=== PATIENT | male | born 1995 | race African-American/Black ===

== ENCOUNTER → 2025-05-10 22:59 | Outpatient (BNV) | payer OTHER, SELFPAY | PROVIDERS: Emergency Provider Emergency Medicine; Visit Provider Radiology Diagnostic Radiology | DX: R07.9 Chest pain, unspecified (principal) | CPT/HCPCS: 71045 ==

== ENCOUNTER 2025-05-10 23:27 | Emergency (ER) | payer MEDICAID, SELFPAY ==
--- NOTE | ~2025-05-10 | XR_ITS ---
CLINICAL HISTORY: Chest Pain 1 view chest x-ray Comparison: None provided Findings: No consolidation or effusion. Heart size is normal. No acute fracture. IMPRESSION: 1. No acute findings. This document has been electronically signed by: Steve Maldonado MD on 05/11/2025 01:07:10
[2025-05-10 23:44] VITALS: BP 143/97; BP 160/108; PULSE 100; PULSE 77; RESP 19; TEMP 37.2; O2SAT 99; BMI 25.0
--- NOTE | 2025-05-10 23:46 | ECG_ITS ---
Test Reason : CP Blood Pressure : */* mmHG Vent. Rate : 75 BPM Atrial Rate : 75 BPM P-R Int : 134 ms QRS Dur : 94 ms QT Int : 388 ms P-R-T Axes : 55 0 -31 degrees QTcB Int : 433 ms Normal sinus rhythm Nonspecific T wave abnormality Abnormal ECG When compared with ECG of 26-Feb-2016 20:08, Nonspecific T wave abnormality now evident in Inferior leads Nonspecific T wave abnormality now evident in Lateral leads Referred By: Generic ED Physician Electronically Signed By: AYESHA NJ
[2025-05-11 00:19] LABS: Basophils Absolute Auto 0.1 X10*3/uL (0.0-0.2); Basophils Percent Auto 0.4 % (0-2); Eosinophils Absolute Auto 0.1 X10*3/uL (0.0-0.4); Eosinophils Percent Auto 0.5 % (0-4); Hematocrit 39.3 % (42.0-52.0); Hemoglobin 13.4 g/dl (14.0-18.0); Imm Gran Abs Auto 0.07 X10*3/uL (0.00-0.03); Imm Gran Pct Auto 0.6 % (0.0-0.4); Lymphocytes Absolute Auto 2.4 X10*3/uL (1.2-4.9); Lymphocytes Percent Auto 19.1 % (20-40); MANUAL DIFF FLAG NO; Mean Corpuscular HGB Conc 34.1 g/dl (31.0-36.0); Mean Corpuscular Hemoglobin 28.5 pg (27.0-33.0); Mean Corpuscular Volume 83.4 fL (80.0-98.0); Mean Platelet Volume 9.3 fL (9.4-12.4); Monocytes Absolute Auto 0.8 X10*3/uL (0.1-1.2); Neutrophils Absolute Auto 9.1 x10*3/uL (2.0-8.3); Neutrophils Percent Auto 73.4 % (45-73); Platelet Count 344 X10*3/uL (160-400); Red Blood Count 4.71 X10*6/uL (4.60-5.80); Red Cell Distribution Width 15.2 % (11.0-16.0); White Blood Count 12.4 X10*3/uL (4.8-10.8)
[2025-05-11 00:44] LABS: Albumin Level 4.6 g/dL (3.5-5.0); Alkaline Phosphatase 91 U/L (39-117); Anion Gap 13 (12-20); Aspartate Amino Transferase 63 U/L (5-37); Bilirubin Total 0.2 mg/dL (0.0-1.0); Blood Urea Nitrogen 12 mg/dL (9-16); Calcium 9.1 mg/dL (8.4-10.2); Carbon Dioxide 22 mmol/L (22-29); Chloride 110 mmol/L (96-108); Creatinine Clr Calc Pharmacy 158.8; Estimated Glomerular Filt Rate > 60; Glucose Random 126 mg/dL (60-115); Potassium 3.3 mmol/L (3.3-5.1); Sodium 142 mmol/L (135-145); Total Protein 7.5 g/dL (6.5-8.0); Troponin-I High Sensitivity < 2.7 ng/L (<3.5-35.0)
[2025-05-11 01:19] LABS: Alanine Aminotransferase 67 U/L (0-40)
--- NOTE | 2025-05-11 02:18 | ED_ITS ---
HPI - Chest Pain General Chief Complaint: Chest Pain Stated Complaint: CP BP 162/107 Time Seen by Provider: 05/10/25 23:36 Source: patient Mode of arrival: ambulatory Limitations: no limitations History of Present Illness ED Provider: Dr. Thais Wu HPI narrative: Patient comes to the emergency room complaining of chest pain. According to the patient, he woke up around 22:30, states that him he went to use the restroom and ?started tripping along with experiencing palpitations. Patient then started to become more anxious, states that he had some chest pressure feeling that someone was pulling his heart through his back. Patient states that he went outside to take some pressure and started feeling better. But every time that he would go back to the house he would have recurrent symptoms. Patient states that he got scared, did not want to go back to sleep and came to the hospital. At this time, patient has no symptoms, denies chest pain or shortness of breath, denies anxiety patient gave him 324 mg of aspirin prior to arriving to the hospital Related Data Allergies Allergy/AdvReac Type Severity Reaction Status Date / Time No Known Allergies Allergy Verified 05/10/25 23:52 Review of Systems 2 Review of Systems: Constitutional : No Weight loss, No Fever, No Chills, No Night Sweats, No Fatigue, No Malaise ENT/Mouth : No Hearing loss, No Ear Pain, No Nasal Congestion, No Sinus Pain, No Hoarseness, No sore throat, No Rhinorrhea, No Swallowing Difficulty Eyes: No Eye Pain, No Swelling, No Redness, No Foreign Body, No Discharge, No Vision Changes Cardiovascular : Earlier today the patient has a sensation of someone pulling his hard through his back, no longer having chest pain. No chest pressure,, No SOB, No Dyspnea on Exertion, No Orthopnea, No Edema, palpitations self-resolved Respiratory : No Cough, No Sputum, No Wheezing, No Smoke Exposure, No Dyspnea Gastrointestinal : No Nausea, No Vomiting, No Diarrhea, No Constipation, No abdominal Pain, No Hematochezia, No Melena Genitourinary : no irregular bleeding, No Dysuria, No Urinary Frequency, No Hematuria, No Urinary Incontinence, No Urgency, No Flank Pain, No Urinary Flow Changes, No Hesitancy Musculoskeletal : No joint pain, No Myalgias, No Joint Swelling Skin : No Skin Lesions, No rash Neuro : No Weakness, No Numbness, No Paresthesias, No Loss of Consciousness, No Dizziness, No Headache Psych : No Anxiety/Panic, No Depression, No SI/HI/AH/VH, No Social Issues, Heme/Lymph: No Bruising, No Bleeding,No Lymphadenopathy Endocrine : No Polyuria, No Polydipsia, No Temperature Intolerance ON LICENSE OF [facility] Social History Social History Alcohol intake: current Alcohol intake frequency: 3 or more drinks per day Alcohol type: wine and hard liquor Smoked in Last 30 Days: Yes Use of substances other than those prescribed or required for medical reasons: Yes Substance Use Type: Marijuana Do you have a plan to hurt others: No Plan Physical Exam 2 Vital Signs: Vital Signs: Last Vital Signs Temp 99.0 F 05/10/25 23:44 Pulse 77 05/10/25 23:44 Resp 19 05/10/25 23:44 BP 143/97 H 05/10/25 23:44 Pulse Ox 99 05/10/25 23:44 O2 Del Method Room Air 05/10/25 23:44 BMI result Body Mass Index 25.0 Const: Other: Appearance: Alert. Oriented X3. No acute distress. Well-appearing, sober, coherent Eyes: Pupils equal, round and reactive to light. ENT: Pharynx normal. Neck: Normal inspection. Neck supple. No lymph nodes noted. No crepitus CVS: Normal heart rate and rhythm. Pulses normal. Normal S1 and S2 Respiratory: No respiratory distress. Breath sounds normal. No Wheezing. No rales Abdomen: Soft and nontender. No rigidity. No distention. Skin: Skin warm and dry. Normal skin color. Normal skin turgor. Extremities: No lower extremity edema. No Lacerations. No Rash Neuro: Oriented X 3. No motor deficit. No sensory deficit. Moving all extremities. No slurred speech. CN 2 through 12 grossly intact Psych: calm, cooperative, normal affect Medical Decision Making Medical Decision Making MDM Narrative: My interpretation of EKG: Normal sinus rhythm, heart rate 75, no ST segment depression or elevation, no T-wave inversion, QTC 433 Labs: No significant abnormality in patient's hematology, white blood cell count 12.4, normal chemistry and troponin Chest x-ray negative Patient likely experienced anxiety. It is possible with the marijuana that he smoked previously was laced. Patient currently asymptomatic Differential Diagnosis Differential Diagnoses: The differential diagnosis associated with the presentation includes (As above) Admission/Observation Consideration of admission/observation: Escalation of care including admission/observation considered (Given patient's symptoms, observation was considered) Lab Data MDM Lab Attestation statement: I reviewed the patient's lab results. 05/11/25 00:15 05/11/25 00:15 Labs: Lab Results 05/11/25 Range/Units 00:15 WBC 12.4 H (4.8-10.8) X10*3/uL RBC 4.71 (4.60-5.80) X10*6/uL Hgb 13.4 L (14.0-18.0) g/dl Hct 39.3 L (42.0-52.0) % MCV 83.4 (80.0-98.0) fL MCH 28.5 (27.0-33.0) pg MCHC 34.1 (31.0-36.0) g/dl RDW 15.2 (11.0-16.0) % Plt Count 344 (160-400) X10*3/uL MPV 9.3 L (9.4-12.4) fL Immature Gran % (Auto) 0.6 H (0.0-0.4) % Neut % (Auto) 73.4 H (45-73) % Lymph % (Auto) 19.1 L (20-40) % Jenkins % (Auto) 6.0 (2-11) % Eos % (Auto) 0.5 (0-4) % Baso % (Auto) 0.4 (0-2) % Lymph # (Auto) 2.4 (1.2-4.9) X10*3/uL Jenkins # (Auto) 0.8 (0.1-1.2) X10*3/uL Eos # (Auto) 0.1 (0.0-0.4) X10*3/uL Baso # (Auto) 0.1 (0.0-0.2) X10*3/uL Abs Immat Gran (auto) 0.07 H (0.00-0.03) X10*3/uL Absolute Neuts (auto) 9.1 H (2.0-8.3) x10*3/uL Absolute Nucleated RBC 0.000 (0.0-0.012) X10*3/uL Nucleated RBC % (auto) 0.0 (0.0-0.2) /100WBC Sodium 142 (135-145) mmol/L Potassium 3.3 (3.3-5.1) mmol/L Chloride 110 H (96-108) mmol/L Carbon Dioxide 22 (22-29) mmol/L Anion Gap 13 (12-20) BUN 12 (9-16) mg/dL Creatinine 0.76 (0.5-1.4) mg/dL Estim Creat Clear Calc 158.8 Estimated GFR > 60 Random Glucose 126 H (60-115) mg/dL Calcium 9.1 (8.4-10.2) mg/dL Total Bilirubin 0.2 (0.0-1.0) mg/dL AST 63 H (5-37) U/L ALT 67 H (0-40) U/L Alkaline Phosphatase 91 (39-117) U/L Troponin I High Sens < 2.7 (<3.5-35.0) ng/L Total Protein 7.5 (6.5-8.0) g/dL Albumin 4.6 (3.5-5.0) g/dL Independent Interpretation I performed an independent interpretation of an: EKG and Plain X-Ray Radiology Impression Discussion of test interpretation with radiology: I have reviewed the radiologist's reading. Radiologist Impression: No consolidation or effusion. Heart size is normal. No acute fracture. Critical Care Time Critical Care Time Critical Care Time: Yes Total Critical Care Time: 35 Attestation: I have personally provided critical care time. Time includes review of lab data, radiology results, discussion with consultants, and monitoring for potential decompensation. Intervention performed as documented. Discharge Plan Discharge Clinical Impression: Atypical chest pain, Anxiety Patient Disposition: Home, Self-Care Instructions: Chest Pain (ED) Print Language: Citizen Of [place]
[2025-05-11 02:23] VITALS: BP 138/100; PULSE 91; RESP 14; TEMP 36.7; O2SAT 96
[2025-05-11 02:43] VITALS: BP 138/100; PULSE 91; RESP 14; TEMP 36.7; O2SAT 96
--- NOTE | 2025-05-24 12:37 | MHC.CARE ---
Patient was seen by the CARE TEAM and referred to CC, referral generated and emailed to [facility].
== END 2025-05-11 02:44 | disposition home or self-care (01) ==
PROVIDERS: Emergency Provider Emergency Medicine
DX: R07.89 Other chest pain (principal); F41.9 Anxiety disorder, unspecified; R94.31 Abnormal electrocardiogram [ECG] [EKG]; R00.2 Palpitations; Z79.899 Other long term (current) drug therapy
CPT/HCPCS: 36415; 71045; 80053; 84484; 85025; 93005; 99283; 99285

== ENCOUNTER → 2025-05-10 23:46 | Outpatient (BNV) | payer MEDICAID, SELFPAY | PROVIDERS: Emergency Provider Emergency Medicine; Visit Provider Internal Medicine | DX: R94.31 Abnormal electrocardiogram [ECG] [EKG] (principal); R07.9 Chest pain, unspecified | CPT/HCPCS: 93010 ==

== ENCOUNTER 2025-05-16 17:18 | Emergency (ER) | payer MEDICAID, SELFPAY ==
[2025-05-16 17:29] VITALS: BP 140/100; BP 141/91; PULSE 109; PULSE 96; RESP 18; TEMP 36.8; O2SAT 99; BMI 25.0
--- NOTE | 2025-05-16 17:52 | ED_ITS ---
HPI - General Adult General Chief complaint: Psychiatric Symptoms Stated complaint: SI, LIFE STRESSORS Time Seen by Provider: 05/16/25 17:19 Source: patient and EMS Mode of arrival: EMS Limitations: no limitations History of Present Illness ED Provider: JESSY ANDINO PA-C HPI narrative: 30 year old male presents to the ED today via EMS for evaluation of increasing depression and suicidal ideations surrounding his recent divorce/ custody issues. Reports calling suicidal help line today. Admits to consuming multiple nips of vodka today. On arrival, patient very agitated. Argumentative with staff and security. Fixating on statements said to him by hvac technician. Refusing to get changed over. Patient was brought in for suicidal ideation. Currently intoxicated and being verbally aggressive. At this time I feel he is a threat to himself and others. Placed on section 12 Related Data Allergies Allergy/AdvReac Type Severity Reaction Status Date / Time No Known Allergies Allergy Verified 05/16/25 17:31 Review of Systems 2 Review of Systems: Yes all other systems are reviewed and are negative [facility] Past Medical History Attestation statement: The following information was validated with the patient. Source: old records reviewed and nursing notes reviewed Social History Social History Alcohol intake: current Alcohol intake frequency: 3 or more drinks per day Alcohol type: hard liquor Smoked in Last 30 Days: Yes Use of substances other than those prescribed or required for medical reasons: Yes Substance Use Type: Marijuana Substance Use Frequency: Occasionally Any prior treatment program specific to substance use: No Advance Directives: No Advance Directives Information Provided: No Do you have a plan to hurt others: No Plan Physical Exam ED Vital Signs: Vital Signs - 24 hr 05/16/25 17:29 05/17/25 02:56 05/17/25 03:31 Temperature 98.2 F 98.3 F 98.8 F Pulse Rate 96 97 79 Respiratory Rate 18 18 13 Blood Pressure 141/91 H 155/98 H 164/98 H Pulse Oximetry 99 100 100 Oxygen Delivery Method Room Air Room Air Room Air 05/17/25 06:11 05/17/25 10:53 Temperature 98.3 F 98.3 F Pulse Rate 91 91 Respiratory Rate 13 13 Blood Pressure 159/101 H 159/101 H Pulse Oximetry 100 100 Oxygen Delivery Method Room Air Room Air BMI result Body Mass Index 25.0 Hypertensive, vitals otherwise WNL General: in NAD Skin: Warm, dry, intact. No rashes or lesions. Head: Normocephalic, atraumatic. EENT: Hearing is intact b/l. Conjunctiva clear. PERRLA. EOM intact. Moist mucous membranes.? Neck: Supple without LAD Cardiac: Chest wall symmetric. RRR Lungs: Normal respiratory effort without accessory muscle use. CTA bilaterally Abdomen: Soft, non-tender, non-distended. No rebound tenderness or guarding Back: No midline spinous or paraspinal tenderness. No step off deformity. Ext: Upper and lower extremities atraumatic, without tenderness, deformity, swelling or erythema Neuro: AOx3. Normal speech. CN 2-12 grossly intact. Ambulating with steady gait. Psych: Argumentative, fixating on certain ideas Course Course Course Narrative: 1814 -- Patient informed he was placed on section 12. On further discussion with RN and I, patient calm and agreeable with oil change technician/ labs. > work up pending Medications Administered Discontinued Medications Generic Name Dose Route Start Last Admin Trade Name Joseq PRN Reason Stop Dose Admin Lorazepam 2 mg 05/17/25 02:57 05/17/25 03:00 Lorazepam 1 Mg Tablet PO 05/17/25 02:58 2 mg ONCE ONE Administration Ondansetron HCl 8 mg 05/17/25 02:57 05/17/25 03:00 Ondansetron Odt 8 Mg Tab.Rapdis TRANSLINGU 05/17/25 02:58 8 mg ONCE ONE Administration Medical Decision Making Medical Decision Making [facility] Narrative: 30 year old male presents to the ED today via EMS for evaluation of increasing depression and suicidal ideations surrounding his recent divorce. Differential diagnosis includes anemia, electrolyte abnormality, mood disorder, anxiety, depression, SI, polysubstance abuse Presentation not consistent with acute organic causes to include delirium, dementia or drug induced disorders (acute ingestions or withdrawal; no evidence of toxidrome).? Given the H&P, I suspect this patient is suicidal and will require observation. placed on section 12 - signed by my attending dr. aldana Will consult care team to evaluate the patient. Will also obtain labs for medical clearance. Plan: labs, EKG, ASA/APAP levels, ETOH level, UDS, care team consultation, reassessment At 03:45, I was informed by the patient's nurse that the patient was complaining of chest pain. EKG: Normal sinus rhythm, heart rate 67, no ST segment depression or elevation, no T-wave inversion, QTC 420 troponin 1 is negative At 10:00 patient is not suicidal not homicidal well-appearing wants to go home. In no distress. Care team involved. Evaluated the patient felt patient is safe to go home. No suicidal homicidal intent. Patient only stated terms when he was drinking. He is currently in stable condition. Will discharge home. Differential Diagnosis Differential Diagnoses: The differential diagnosis associated with the presentation includes as above. Admission/Observation not indicated Lab Data MDM Lab Attestation statement: I reviewed the patient's lab results. as above. 05/16/25 18:08 05/16/25 18:08 Labs: Lab Results 05/16/25 05/16/25 05/17/25 Range/Units 18:08 18:09 03:46 WBC 10.0 (4.8-10.8) X10*3/uL RBC 5.55 (4.60-5.80) X10*6/uL Hgb 15.8 (14.0-18.0) g/dl Hct 46.0 (42.0-52.0) % MCV 82.9 (80.0-98.0) fL MCH 28.5 (27.0-33.0) pg MCHC 34.3 (31.0-36.0) g/dl RDW 15.5 (11.0-16.0) % Plt Count 491 H D (160-400) X10*3/uL MPV 9.1 L (9.4-12.4) fL Immature Gran % (Auto) 0.3 (0.0-0.4) % Neut % (Auto) 57.5 (45-73) % Lymph % (Auto) 35.2 (20-40) % Vance % (Auto) 6.1 (2-11) % Eos % (Auto) 0.3 (0-4) % Baso % (Auto) 0.6 (0-2) % Lymph # (Auto) 3.5 (1.2-4.9) X10*3/uL Vance # (Auto) 0.6 (0.1-1.2) X10*3/uL Eos # (Auto) 0.0 (0.0-0.4) X10*3/uL Baso # (Auto) 0.1 (0.0-0.2) X10*3/uL Abs Immat Gran (auto) 0.03 (0.00-0.03) X10*3/uL Absolute Neuts (auto) 5.8 (2.0-8.3) x10*3/uL Absolute Nucleated RBC 0.000 (0.0-0.012) X10*3/uL Nucleated RBC % (auto) 0.0 (0.0-0.2) /100WBC Sodium 147 H (135-145) mmol/L Potassium 3.8 (3.3-5.1) mmol/L Chloride 108 (96-108) mmol/L Carbon Dioxide 25 (22-29) mmol/L Anion Gap 18 (12-20) BUN 8 L (9-16) mg/dL Creatinine 0.86 (0.5-1.4) mg/dL Estim Creat Clear Calc 140.3 Estimated GFR > 60 Random Glucose 127 H (60-115) mg/dL Calcium 8.9 (8.4-10.2) mg/dL Magnesium 2.6 (1.6-2.6) mg/dL Total Bilirubin 0.3 (0.0-1.0) mg/dL AST 58 H (5-37) U/L ALT 94 H (0-40) U/L Alkaline Phosphatase 124 H (39-117) U/L Troponin I High Sens < 2.7 (<3.5-35.0) ng/L Total Protein 8.7 H (6.5-8.0) g/dL Albumin 5.2 H (3.5-5.0) g/dL Urine Color Dark Yellow Urine Appearance Clear Urine pH 8.0 (5.0-9.0) Ur Specific [place] >= 1.030 H (1.005-1.025) Urine Protein 300 (3+) H (Neg-Trace) mg/dL Urine Glucose (UA) Negative (Negative) mg/dL Urine Ketones Trace (Negative) mg/dL Urine Blood Negative (Negative) Urine Nitrite Negative (Negative) Ur Leukocyte Esterase Negative (Negative) Urine RBC 0-2 (0-2) /HPF Urine WBC 0-5 (0-5) /HPF Ur Squamous Epith Cells 0-2 (0-2) /HPF Calcium Oxalate Crystal Present Urine Bacteria 1+ (None Seen) Hyaline Casts 0-2 (0-2) /LPF Salicylates < 5.0 L (15-30) mg/dL Urine Opiates Screen Not Detected (Not Detect) Ur Buprenorphine Scrn Not Detected (Not Detect) ng/mL Ur Oxycodone Screen Not Detected (Not Detect) ng/mL Urine Methadone Screen Not Detected (Not Detect) ng/mL Urine Fentanyl Screen Not Detected (Not Detect) Acetaminophen < 3 (<30) mcg/mL Ur Barbiturates Screen Not Detected (Not Detect) Ur Phencyclidine Scrn Not Detected (Not Detect) Ur Amphetamines Screen Not Detected (Not Detect) U Benzodiazepines Scrn Not Detected (Not Detect) Urine Cocaine Screen Not Detected (Not Detect) U Marijuana (THC) Screen POSITIVE H (Not Detect) Ethyl Alcohol 300 H* mg/dL 05/17/25 Range/Units 05:37 WBC (4.8-10.8) X10*3/uL RBC (4.60-5.80) X10*6/uL Hgb (14.0-18.0) g/dl Hct (42.0-52.0) % MCV (80.0-98.0) fL MCH (27.0-33.0) pg MCHC (31.0-36.0) g/dl RDW (11.0-16.0) % Plt Count (160-400) X10*3/uL MPV (9.4-12.4) fL Immature Gran % (Auto) (0.0-0.4) % Neut % (Auto) (45-73) % Lymph % (Auto) (20-40) % Vance % (Auto) (2-11) % Eos % (Auto) (0-4) % Baso % (Auto) (0-2) % Lymph # (Auto) (1.2-4.9) X10*3/uL Vance # (Auto) (0.1-1.2) X10*3/uL Eos # (Auto) (0.0-0.4) X10*3/uL Baso # (Auto) (0.0-0.2) X10*3/uL Abs Immat Gran (auto) (0.00-0.03) X10*3/uL Absolute Neuts (auto) (2.0-8.3) x10*3/uL Absolute Nucleated RBC (0.0-0.012) X10*3/uL Nucleated RBC % (auto) (0.0-0.2) /100WBC Sodium (135-145) mmol/L Potassium (3.3-5.1) mmol/L Chloride (96-108) mmol/L Carbon Dioxide (22-29) mmol/L Anion Gap (12-20) BUN (9-16) mg/dL Creatinine (0.5-1.4) mg/dL Estim Creat Clear Calc Estimated GFR Random Glucose (60-115) mg/dL Calcium (8.4-10.2) mg/dL Magnesium (1.6-2.6) mg/dL Total Bilirubin (0.0-1.0) mg/dL AST (5-37) U/L ALT (0-40) U/L Alkaline Phosphatase (39-117) U/L Troponin I High Sens < 2.7 (<3.5-35.0) ng/L Total Protein (6.5-8.0) g/dL Albumin (3.5-5.0) g/dL Urine Color Urine Appearance Urine pH (5.0-9.0) Ur Specific [place] (1.005-1.025) Urine Protein (Neg-Trace) mg/dL Urine Glucose (UA) (Negative) mg/dL Urine Ketones (Negative) mg/dL Urine Blood (Negative) Urine Nitrite (Negative) Ur Leukocyte Esterase (Negative) Urine RBC (0-2) /HPF Urine WBC (0-5) /HPF Ur Squamous Epith Cells (0-2) /HPF Calcium Oxalate Crystal Urine Bacteria (None Seen) Hyaline Casts (0-2) /LPF Salicylates (15-30) mg/dL Urine Opiates Screen (Not Detect) Ur Buprenorphine Scrn (Not Detect) ng/mL Ur Oxycodone Screen (Not Detect) ng/mL Urine Methadone Screen (Not Detect) ng/mL Urine Fentanyl Screen (Not Detect) Acetaminophen (<30) mcg/mL Ur Barbiturates Screen (Not Detect) Ur Phencyclidine Scrn (Not Detect) Ur Amphetamines Screen (Not Detect) U Benzodiazepines Scrn (Not Detect) Urine Cocaine Screen (Not Detect) U Marijuana (THC) Screen (Not Detect) Ethyl Alcohol mg/dL Independent Historian Clinical information obtained from an independent historian. History obtained from or confirmed by: EMS Social Determinants Patient?s care significantly limited by Social Determinants of Health including: Other Social Determinant of Health Critical Care Time Critical Care Time Critical Care Time: No Discharge Plan Discharge Clinical Impression: Suicidal ideation, Depression Patient Disposition: Home, Self-Care Instructions: Alcohol Intoxication (DC) Referrals: Physician,Unknown J [Primary Care Provider, Medical] - 1 week Referral Note: Please go to detox Stand Alone Forms: Work/School Release Interventions: Navarro-Suicide Risk Severity Scale Last Done: 05/17/25 06:14 ED Discharge Assessment Last Done: 05/17/25 10:53 Discharge Date/Time: 05/17/25 10:54 Print Language: French
[2025-05-16 18:16] LABS: MANUAL DIFF FLAG NO
[2025-05-16 18:23] LABS: Hematocrit 46.0 % (42.0-52.0); Hemoglobin 15.8 g/dl (14.0-18.0); Imm Gran Abs Auto 0.03 X10*3/uL (0.00-0.03); Imm Gran Pct Auto 0.3 % (0.0-0.4); Lymphocytes Absolute Auto 3.5 X10*3/uL (1.2-4.9); Mean Corpuscular HGB Conc 34.3 g/dl (31.0-36.0); Mean Corpuscular Hemoglobin 28.5 pg (27.0-33.0); Mean Corpuscular Volume 82.9 fL (80.0-98.0); NRBC Abs Auto 0.000 X10*3/uL (0.0-0.012); NRBC Pct Auto 0.0 /100WBC (0.0-0.2); Platelet Count 491 X10*3/uL (160-400); Red Blood Count 5.55 X10*6/uL (4.60-5.80); White Blood Count 10.0 X10*3/uL (4.8-10.8)
[2025-05-16 18:28] LABS: Cannabinoid Screen Urine POSITIVE (Not Detect)
[2025-05-16 18:45] LABS: Acetaminophen LAB < 3 mcg/mL (<30); Alanine Aminotransferase 94 U/L (0-40); Albumin Level 5.2 g/dL (3.5-5.0); Alkaline Phosphatase 124 U/L (39-117); Anion Gap 18 (12-20); Aspartate Amino Transferase 58 U/L (5-37); Blood Urea Nitrogen 8 mg/dL (9-16); Calcium 8.9 mg/dL (8.4-10.2); Carbon Dioxide 25 mmol/L (22-29); Chloride 108 mmol/L (96-108); Creatinine Clr Calc Pharmacy 140.3; Estimated Glomerular Filt Rate > 60; Magnesium 2.6 mg/dL (1.6-2.6); Potassium 3.8 mmol/L (3.3-5.1); Salicylate < 5.0 mg/dL (15-30); Sodium 147 mmol/L (135-145); Total Protein 8.7 g/dL (6.5-8.0)
--- NOTE | 2025-05-16 19:17 | PC.NURSE ---
Assumed care of patient at 19:00, patient resting in bed, eyes closed, RR 16, respirations noted to be even and unlabored.
--- OUTSIDE RECORDS SUMMARY | 2025-05-16 20:20 | XMS_ITS | Clinical Summary ---
Author Organization [facility] Address [address] [place] [address] Phone Care Team Providers Care Bundle Cutter Name Role Phone Henrietta Scherer BACILIO Primary Care Provider [phone] Immunizations Immunization Administration Dates Next Due DTaP 5 06/16/2001, 8,1997, 997,1997 HPV, Quadrivalent 09/26/2013,05/23/2013,03/22/20 13 Hep A, ped/adol 04/09/2015,04/05/2014 Hep B, ped/adol 1997,1997,1997 Hib (PRP-T) 10/01/1998, 7,1997, 997 IPV 06/16/2001 MMR 06/16/2001,06/06/1998 Meningococcal Conj (Menactra) MCV4P 04/09/2015,0 01/30/2009 OPV 1997,1997,1997 Tdap 01/30/2009 Varicella 01/30/2009,06/06/1998 Family History Relation Name Status Comments Father Alive Father: Alive a nd well Half-Sister Alive Half sister (M) : Alive and well Mother Alive Mother: Alive a nd well Other Family history of Diabetes mellitus, Family history of Asthma, Family history of Elevated cholesterol Sister 1 Alive Sister: eczema, eczema Sister 2 Alive Sister: eczema, eczema Social History Tobacco Use Types Packs/Day Years Used Date Smoking Tobacco: Unknown Comments:Unknown if ever smo ked Sex and Gender Information Value Date Recorded Sex Assigned at Not on file Legal Sex Male 5:17 PM EDT Gender Identity Not on file Sexual Orientation Not on file Last Filed Vital Signs Vital Sign Reading Time Taken Comments Blood Pressure 117/84 11/26/2016 12:00 AM EST Pulse 70 11/26/2016 12:00 AM EST Temperature 36.2 C (97.2 F) 06/05/2012 12:00 AM EDT Respiratory Rate - - Oxygen Saturation 100% 06/05/2012 12:00 AM EDT Inhaled Oxygen Concentration - - Weight 56 kg (123 lb 6.4 oz) 11/26/2016 12:00 AM EST Height 180.3 cm (5' 11 ) 11/26/2016 12:00 AM EST Body Mass Index 17.21 11/26/2016 12:00 AM EST Plan of Treatment Health Maintenance Due Date Last Done Comments DTaP,Tdap,and Td Vaccines (7 - Td or Tdap) 01/30/2019 01/30/2009, 06/16/2001, 10/01/1998, Additional history exists COVID-19 Vaccine ( season) 2024 Influenza Vaccines (#1) 2025 Hepatitis B Vaccines Completed 1997, 1997, 1997 HIB Vaccines Completed 10/01/1998, 10/14, 1997, Additional history exists IPV Vaccines Completed 06/16/2001, 10/14, 1997, Additional history exists MMR Vaccines Completed 06/16/2001, 06/06/1998 Varicella Vaccines Completed 01/30/2009, 06/06/1998 HPV Vaccines Completed 09/26/2013, 05/14, 03/22/2013 Hepatitis A Vaccines Completed 04/09/2015, 04/05/20 14 Meningococcal Vaccine Completed 04/09/2015, 009 Men B Vaccine Aged Out No longer elig ible based on patient's age to complete this topic Pneumococcal Vaccine Aged Out No long er eligible based on patient's age to complete this topic Care Teams Bundle Cutter Relationship Specialty Start Date End Date Henrietta Scherer NP PCP - General 06/24/17
--- NOTE | 2025-05-16 23:34 | PC.NURSE ---
Took over care from ROCIO Reyes, pt sleeping at this time, no sign of distress,
[2025-05-17 01:37] LABS: Appearance Urine Clear; PH 8.0 (5.0-9.0)
[2025-05-17 01:38] LABS: Glucose Urine UA Negative (Negative); Specific Gravity - Urine >= 1.030 (1.005-1.025); UMIC TRIGGER UACC YES
--- NOTE | 2025-05-17 02:05 | PC.NURSE ---
pt sleeping at this time, no sign of distress.
[2025-05-17 02:56] VITALS: BP 155/98; PULSE 97; RESP 18; TEMP 36.8; O2SAT 100
--- NOTE | 2025-05-17 03:01 | PC.NURSE ---
Medicated per mar, for CIWA and nausea
--- NOTE | 2025-05-17 03:24 | PC.NURSE ---
pt feeling dizziness, bp elevated, notified charge nurse, pt being transferred room 22 for monitoring.
[2025-05-17 03:31] VITALS: BP 164/98; PULSE 79; RESP 13; TEMP 37.1; O2SAT 100
--- NOTE | 2025-05-17 03:34 | ECG_ITS ---
Test Reason : CHEST PAIN Blood Pressure : */* mmHG Vent. Rate : 67 BPM Atrial Rate : 67 BPM P-R Int : 144 ms QRS Dur : 92 ms QT Int : 398 ms P-R-T Axes : 59 4 2 degrees QTcB Int : 420 ms Normal sinus rhythm with sinus arrhythmia Nonspecific T wave abnormality Abnormal ECG When compared with ECG of 10-May-2025 23:49, No significant change was found Referred By: Cookie Dao Electronically Signed By: SAMANTHA JARAMILLO MD
[2025-05-17 04:15] LABS: Troponin-I High Sensitivity < 2.7 ng/L (<3.5-35.0)
[2025-05-17 06:05] LABS: Troponin-I High Sensitivity < 2.7 ng/L (<3.5-35.0)
[2025-05-17 06:11] VITALS: BP 159/101; PULSE 91; RESP 13; TEMP 36.8; O2SAT 100
--- NOTE | 2025-05-17 06:17 | PC.NURSE ---
Pt was experiencing, sweating, dizziness and chest pain, was taken to main for observation, pt brought back after second trop, awaiting to be seen.
--- NOTE | 2025-05-17 07:25 | PC.NURSE ---
Pt resting quietly in bed, BH2. States he's hoping to get to a Detox this am. States he feels Much better since receiving ativan around 3am. Denies ever having DT's or Sz from withdrawal in the past. Awaits CARE team eval this am.
--- NOTE | 2025-05-17 10:10 | MHC.CARE ---
Pt has been referred to [facility] for a 3-day follow up for services and a 7 day alert.
[2025-05-17 10:53] VITALS: BP 159/101; PULSE 91; RESP 13; TEMP 36.8; O2SAT 100
== END 2025-05-17 10:54 | disposition home or self-care (01) ==
PROVIDERS: Physician Assistant; Physician Assistant Medical; Emergency Provider Emergency Medicine
DX: F32.A Depression, unspecified (principal); R45.851 Suicidal ideations; R45.1 Restlessness and agitation; F10.90 Alcohol use, unspecified, uncomplicated; Y90.8 Blood alcohol level of 240 mg/100 ml or more; Z72.89 Other problems related to lifestyle; Z63.5 Disruption of family by separation and divorce; Z65.3 Problems related to other legal circumstances
CPT/HCPCS: 36415; 80053; 80143; 80179; 80307; 81001; 83735; 84484; 85025; 93005; 99285; S9485

== ENCOUNTER → 2025-05-17 03:34 | Outpatient (BNV) | payer MEDICAID, SELFPAY | PROVIDERS: Emergency Provider Emergency Medicine; Visit Provider Internal Medicine Cardiovascular Disease | DX: R94.31 Abnormal electrocardiogram [ECG] [EKG] (principal); R07.9 Chest pain, unspecified | CPT/HCPCS: 93010 ==

== ENCOUNTER 2025-11-05 18:41 | Emergency (ER) | payer MEDICAID, SELFPAY ==
--- NOTE | ~2025-11-05 | XR_ITS ---
CLINICAL HISTORY: pain Chest Radiograph Comparison: 05/10/25 Findings: No cardiomegaly. Normal mediastinal contours. No pneumothorax. No opacity. No pleural effusion. No acute findings in the upper abdomen. No acute fracture. Impression: No acute findings. This document has been electronically signed by: Jamila Carrasco MD on 11/05/2025 20:39:26
--- NOTE | 2025-11-05 18:45 | ECG_ITS ---
Test Reason : CHEST PAIN Blood Pressure : */* mmHG Vent. Rate : 84 BPM Atrial Rate : 84 BPM P-R Int : 158 ms QRS Dur : 94 ms QT Int : 398 ms P-R-T Axes : 50 0 6 degrees QTcB Int : 470 ms Normal sinus rhythm Normal ECG When compared with ECG of 17-May-2025 03:34, No significant change was found Referred By: Generic ED Physician Electronically Signed By: SAMANTHA JARAMILLO MD
[2025-11-05 18:49] VITALS: BP 150/115; BP 157/111; PULSE 118; PULSE 92; RESP 16; TEMP 36.8; O2SAT 100; O2SAT 99; BMI 26.6
[2025-11-05 19:24] LABS: MANUAL DIFF FLAG NO
[2025-11-05 19:25] LABS: Hematocrit 41.4 % (42.0-52.0); Hemoglobin 14.3 g/dl (14.0-18.0); Imm Gran Abs Auto 0.04 X10*3/uL (0.00-0.03); Imm Gran Pct Auto 0.4 % (0.0-0.4); Lymphocytes Absolute Auto 2.0 X10*3/uL (1.2-4.9); Mean Corpuscular HGB Conc 34.5 g/dl (31.0-36.0); Mean Corpuscular Hemoglobin 30.0 pg (27.0-33.0); Mean Corpuscular Volume 86.8 fL (80.0-98.0); NRBC Abs Auto 0.000 X10*3/uL (0.0-0.012); NRBC Pct Auto 0.0 /100WBC (0.0-0.2); Platelet Count 412 X10*3/uL (160-400); Red Blood Count 4.77 X10*6/uL (4.60-5.80); White Blood Count 9.2 X10*3/uL (4.8-10.8)
--- OUTSIDE RECORDS SUMMARY | 2025-11-05 19:32 | XMS_ITS | Clinical Summary ---
Author Organization [facility] Address [address] [place] [id number] Phone Care Team Providers Care Web Retailer Name Role Phone Pcp, Unknown Primary Care Provider Unavailabl e Social History Tobacco Use Types Packs/Day Years Used Date Smoking Tobacco: Never Assessed Education Answer Date Recorded Are you interested in more education? Not on nikolai e 03/11/2023 Are you concerned about learning? Not on file 03/11/2023 No 03/11/2023 No 03/11/2023 Digital Access Answer Date Recorded No 04/12/2023 No 04/12/2023 Reliable internet access at home? Not on file 04/12/2023 Device with a working camera? Not on file Sex and Gender Information Value Date Recorded Sex Assigned at Not on file Legal Sex Male 1:24 PM EDT Gender Identity Not on file Sexual Orientation Not on file Plan of Treatment Health Maintenance Due Date Last Done Comments Adult Td,Tdap Booster 1997 DEPRESSION SCREENING 2009 SMOKING Hx and SMOKELESS TOB ACCO SCREENING 2010 HEPATITIS C SCREENING 2015 HIV ONE-TIME SCREENING (18-6 5 YEARS) 2015 INFLUENZA VACCINE (#1) 2025 COVID-19 VACCINE (2024-2 6 season) 2025 HEPATITIS A VACCINES Aged Out No long er eligible based on patient's age to complete this topic HIB VACCINES Aged Out No longer eligi ble based on patient's age to complete this topic MENINGOCOCCAL VACCINES (ACWY) Aged Out No longer eligible based on patient's age to complete this topic MENINGOCOCCAL VACCINES (B) Aged Out N o longer eligible based on patient's age to complete this topic PNEUMOCOCCAL VACCINES (0-49 years) Aged Out No longer eligible based on patient's age to complete this topic Medical Devices Not on file Care Teams Web Retailer Relationship Specialty Start Date End Date Pcp, Unknown PCP - General 06/11/20 Additional Source Comments The information contained in this document represents components of the legal health record. It is not the complete legal health record.[facility]
--- OUTSIDE RECORDS SUMMARY | 2025-11-05 19:32 | XMS_ITS | Clinical Summary ---
Author Organization [facility] Address [address] [place] [address] Phone Care Team Providers Care Shank Scourer Name Role Phone Henrietta Scherer BACILIO Primary Care Provider [phone] Immunizations Immunization Administration Dates Next Due DTaP [...] 01/30/2019 01/30/2009, 06/16/2001, 10/01/1998, Additional history exists Influenza Vaccines (#1) 2025 COVID-19 Vaccine ( season) 2025 Hepatitis B Vaccines Completed 1997, 1997, [...] age to complete this topic Care Teams Shank Scourer Relationship Specialty Start Date End Date Henrietta Scherer NP PCP - General 06/24/17
--- OUTSIDE RECORDS SUMMARY | 2025-11-05 19:32 | XMS_ITS | Encounter Summary ---
Author Organization [facility] Address [address] [place] [address] Phone Care Team Providers Care Technical Director Name Role Phone Henrietta Scherer NP Primary Care Provider [phone] Encounter Details Date Type Department Care Team (Late st Contact Info) Description 06/30/2017 Conversion Encounter [place] [facility] - [address] [address] Social History Tobacco Use Types Packs/Day Years Used Date Smoking Tobacco: Unknown Comments:Unknown if ever smo ked Sex and Gender Information Value Date Recorded Sex Assigned at Not on file Legal Sex Male 5:17 PM EDT Gender Identity Not on file Sexual Orientation Not on file documented as of this encounter Plan of Treatment Not on file documented as of this encounter Visit Diagnoses Not on filedocumented in this encounter Care Teams Technical Director Relationship Specialty Start Date End Date Henrietta Scherer NP PCP - General 06/24/17 documented as of this encounter
--- OUTSIDE RECORDS SUMMARY | 2025-11-05 19:32 | XMS_ITS | Encounter Summary ---
Author Organization [facility] Address [address] [place] [address] Phone Care Team Providers Care Head Mva Reactor Operator Name Role Phone Pcp, Unknown Primary Care Provider Unavailabl e Encounter Details Date Type Department Care Team (Late st Contact Info) Description 06/11/2020 Transcribe Orders [facility] [address] [place] [address] Alex Dave MD [address] [place] [address] [email or web address] Pre-employment examination (Primary Dx) Social History Tobacco Use Types Packs/Day Years Used Date Smoking Tobacco: Never Assessed Sex and Gender Information Value Date Recorded Sex Assigned at Not on file Legal Sex Male 1:24 PM EDT Gender Identity Not on file Sexual Orientation Not on file documented as of this encounter Plan of Treatment Not on file documented as of this encounter Results * Varicella-zoster (VZV) antibody, IgG (06/11/2020 1:33 PM EDT) Varicella Ab(s) Positive Positive [facility] Blood (Blood) 06/11/2020 1:3 3 PM EDT 06/12/2020 10:32 AM EDT us Alex Dave MD LAB BLOOD BKR ORDERABLES Fin al Result [facility] [address] [place] [address] * Rubella antibody, IgG (06/11/2020 1:33 PM EDT) Rubella Ab, IgG Positive Positive [facility] Blood (Blood) 06/11/2020 1:3 3 PM EDT 06/12/2020 10:32 AM EDT Alex Dave MD LAB BLOOD BKR ORDERABLES Fin al Result Performing Organization Address City/[facility]/ZIP Co de Phone Number [address] [address] * Measles antibody, IgG (06/11/2020 1:33 PM EDT) RUBEOLA IGG Positive Positive [facility] Blood (Blood) 06/11/2020 1:3 3 PM EDT 06/12/2020 10:32 AM EDT Alex Dave MD LAB BLOOD BKR ORDERABLES Fin al Result Performing Organization Address [facility] Co de Phone Number [address] [address] * Hepatitis B surface antibody (06/11/2020 1:33 PM EDT) HBV SURFACE ANTIBODY Negative [facility] Comment: Unvaccinated: Negative Vaccinated: Positive Blood 06/11/2020 1:33 PM EDT 06/11/2020 5:08 PM EDT us Alex Dave MD LAB BLOOD BKR ORDERABLES Fin al Result Performing Organization Address [facility] Co de Phone Number [address] [address] documented in this encounter Visit Diagnoses Diagnosis Pre-employment examination- Primary documented in this encounter Care Teams Head Mva Reactor Operator Relationship Specialty Start Date End Date Pcp, Unknown PCP - General 06/11/20 documented as of this encounter Additional Source Comments The information contained in this document represents components of the legal health record. It is not the complete legal health record.[facility]
[2025-11-05 19:40] LABS: Alanine Aminotransferase 132 U/L (0-40); Albumin Level 5.0 g/dL (3.5-5.0); Alkaline Phosphatase 98 U/L (39-117); Anion Gap 18 (12-20); Aspartate Amino Transferase 87 U/L (5-37); Blood Urea Nitrogen 14 mg/dL (9-16); Calcium 9.1 mg/dL (8.4-10.2); Carbon Dioxide 23 mmol/L (22-29); Chloride 104 mmol/L (96-108); Creatinine Clr Calc Pharmacy 125.5; Estimated Glomerular Filt Rate > 60; Potassium 3.7 mmol/L (3.3-5.1); Sodium 141 mmol/L (135-145); Total Protein 8.1 g/dL (6.5-8.0)
[2025-11-05 19:48] LABS: Troponin-I High Sensitivity < 2.7 ng/L (<3.5-35.0)
[2025-11-05 20:04] LABS: Resp Syncy Virus RNA Qual PCR NEGATIVE (Negative); SARS COV2 PCR INHOUSE NEGATIVE (Negative)
--- NOTE | 2025-11-05 20:44 | ED.CHESTPAIN ---
HPI - Chest Pain General Chief Complaint: Chest Pain Stated Complaint: chest pain bp 128/129 Time Seen by Provider: 11/05/25 20:04 Source: patient Limitations: no limitations History of Present Illness ED Provider: Balbina Eldridge PA-C HPI narrative: 30-year-old male presents with left chest discomfort since earlier today. Pain over left mid chest, with radiation to the left mid back. Discomfort intermittent described as a squeezing sensation. Patient denies recent cough or fever, however he thinks he may have had the GI bug , his nausea vomiting have since resolved. No new heavy lifting or other activity that could have precipitated his symptoms.Denies history of kidney stones, dysuria, hematuria. Related Data Allergies Allergy/AdvReac Type Severity Reaction Status Date / Time No Known Allergies Allergy Verified 11/05/25 19:07 Review of Systems Review of Systems: Yes all other systems are reviewed and are negative Constitutional: Constitutional: Denies fatigue and Denies fever(s) Cardiovascular: Cardiovascular: Reports chest pain and Denies dyspnea Respiratory: Respiratory: Denies cough and Denies dyspnea Gastrointestinal: Gastrointestinal: Denies abdominal pain, Denies nausea and Denies vomiting Genitourinary: Genitourinary: Denies hematuria, Denies dysuria and Denies flank pain Musculoskeletal: Musculoskeletal: Reports back pain Endocrine: Endocrine: Denies fatigue PMFSH Past Medical History Attestation statement: The following information was validated with the patient. Social History Social History Alcohol intake: current Alcohol intake frequency: 3 or more drinks per day Alcohol type: hard liquor Substance Use Type: Marijuana Advance Directives: No Advance Directives Information Provided: No Do you have a plan to hurt others: No Plan Physical Exam Vital Signs: Vital Signs: Last Vital Signs Temp 98.3 F 11/05/25 18:49 Pulse 92 11/05/25 18:49 Resp 16 11/05/25 18:49 BP 157/111 H 11/05/25 18:49 Pulse Ox 99 11/05/25 18:49 O2 Del Method Room Air 11/05/25 18:49 BMI result Body Mass Index 26.6 Const: Other: Alert Orientation/consciousness: patient oriented x3 Resp: Effort & Inspection: normal respiratory effort Cardio: Other: normal peripheral perfusion : General: Yes no CVA tenderness Back/Spine/Pelvis: Back: no CVA tenderness Skin: Other: warm dry no rash Neuro: General: patient oriented x3, gait normal, no focal motor deficits and CN's II-XI intact bilaterally Psych: Other: cooperative Medications Administered Discontinued Medications Generic Name Dose Route Start Last Admin Trade Name Willy PRN Reason Stop Dose Admin Ibuprofen 600 mg 11/05/25 20:36 11/05/25 20:52 Ibuprofen 600 Mg Tablet PO 11/05/25 20:37 600 mg ONCE ONE Administration Medical Decision Making Medical Decision Making [facility] Narrative: 30-year-old male presents with left chest discomfort since earlier today. Pain over left mid chest, with radiation to the left mid back. Discomfort intermittent described as a squeezing sensation. Patient denies recent cough or fever, however he thinks he may have had the GI bug , his nausea vomiting have since resolved. No new heavy lifting or other activity that could have precipitated his symptoms.Denies history of kidney stones, dysuria, hematuria. No chronic issues History: Per patient I have considered the following differential diagnoses: Costochondritis, chest wall strain, viral syndrome, ACS, pneumonia, Renal colic, pyelonephritis Plan: ACS was considered, however the patient has no risk factors for coronary artery disease, his heart score is 0. Screening labs including cardiac enzymes EKG obtained. The patient has had some recent infectious symptoms, perhaps he has developed costochondritis, viral panel ordered it was normal. Chest x-ray is clear there was no subsequent pneumonia. thought about related pathology given associated mid back pain, however no CVA tenderness, he is not having any urinary symptoms, to suggest renal colic/ Versus pyelonephritis. We will treat with ibuprofen for chest wall pain /costochondritis. I have independently reviewed the following tests: Labs: No leukocytosis, not anemic, no electrolyte abnormality, troponin less than 2.7, viral panel negative EKG: Normal sinus rhythm, rate 84, no ischemic changes no ectopy QTC 470 Chest x-ray:Findings: No cardiomegaly. Normal mediastinal contours. No pneumothorax. No opacity. No pleural effusion. No acute findings in the upper abdomen. No acute fracture. Impression: No acute findings. Differential Diagnosis Differential Diagnoses: The differential diagnosis associated with the presentation includes See [facility] Admission/Observation Consideration of admission/observation: Escalation of care including admission/observation considered Not applicable Lab Data [facility] Lab Attestation statement: I reviewed the patient's lab results. 11/05/25 19:17 11/05/25 19:17 Labs: Lab Results 11/05/25 Range/Units 19:17 WBC 9.2 (4.8-10.8) X10*3/uL RBC 4.77 (4.60-5.80) X10*6/uL Hgb 14.3 (14.0-18.0) g/dl Hct 41.4 L (42.0-52.0) % MCV 86.8 (80.0-98.0) fL MCH 30.0 (27.0-33.0) pg MCHC 34.5 (31.0-36.0) g/dl RDW 14.5 (11.0-16.0) % Plt Count 412 H (160-400) X10*3/uL MPV 8.5 L (9.4-12.4) fL Immature Gran % (Auto) 0.4 (0.0-0.4) % Neut % (Auto) 69.0 (45-73) % Lymph % (Auto) 22.2 (20-40) % [place] % (Auto) 7.7 (2-11) % Eos % (Auto) 0.3 (0-4) % Baso % (Auto) 0.4 (0-2) % Lymph # (Auto) 2.0 (1.2-4.9) X10*3/uL [place] # (Auto) 0.7 (0.1-1.2) X10*3/uL Eos # (Auto) 0.0 (0.0-0.4) X10*3/uL Baso # (Auto) 0.0 (0.0-0.2) X10*3/uL Abs Immat Gran (auto) 0.04 H (0.00-0.03) X10*3/uL Absolute Neuts (auto) 6.3 (2.0-8.3) x10*3/uL Absolute Nucleated RBC 0.000 (0.0-0.012) X10*3/uL Nucleated RBC % (auto) 0.0 (0.0-0.2) /100WBC Sodium 141 (135-145) mmol/L Potassium 3.7 (3.3-5.1) mmol/L Chloride 104 (96-108) mmol/L Carbon Dioxide 23 (22-29) mmol/L Anion Gap 18 (12-20) BUN 14 (9-16) mg/dL Creatinine 0.99 (0.5-1.4) mg/dL Estim Creat Clear Calc 125.5 Estimated GFR > 60 Random Glucose 102 (60-115) mg/dL Calcium 9.1 (8.4-10.2) mg/dL Total Bilirubin 0.4 (0.0-1.0) mg/dL AST 87 H (5-37) U/L ALT 132 H (0-40) U/L Alkaline Phosphatase 98 (39-117) U/L Troponin I High Sens < 2.7 (<3.5-35.0) ng/L Total Protein 8.1 H (6.5-8.0) g/dL Albumin 5.0 (3.5-5.0) g/dL Influenza Type A (PCR) NEGATIVE (Negative) Influenza Type B (PCR) NEGATIVE (Negative) RSV RNA Qual (PCR) NEGATIVE (Negative) SARS-CoV-2 RNA (RT-PCR) NEGATIVE (Negative) Independent Interpretation I performed an independent interpretation of an: EKG Radiology Impression Discussion of test interpretation with radiology: I have reviewed the radiologist's reading. Discharge Plan Discharge Clinical Impression: Pain, chest wall Patient Disposition: Home, Self-Care Instructions: Chest Wall Pain (ED) Additional Instructions: Your symptoms and exam were most consistent with musculoskeletal pain. See home care instructions. All of your screening labs including a cardiac enzymes were negative. There were no concerning changes on the EKG in the chest x-ray is clear. A viral panel was tested as well you were tested for influenza RSV and COVID, it was normal. You can use [id number] ibuprofen 600 mg taken every 6 hours with food, for your discomfort. Follow up with primary care as needed. Print Language: Latvian
[2025-11-05 22:55] VITALS: BP 160/117; PULSE 93; RESP 14; TEMP 36.8; O2SAT 98
== END 2025-11-05 20:48 | disposition home or self-care (01) ==
PROVIDERS: Emergency Provider Emergency Medicine
DX: R07.89 Other chest pain (principal); Z03.818 Encounter for observation for suspected exposure to other biological agents ruled out; Z11.52 Encounter for screening for COVID-19
CPT/HCPCS: 71045; 80053; 84484; 85025; 87637; 93005; 99283; 99285

== ENCOUNTER → 2025-11-05 18:45 | Outpatient (BNV) | payer MEDICAID, SELFPAY | PROVIDERS: Emergency Provider Emergency Medicine; Visit Provider Internal Medicine Cardiovascular Disease | DX: R07.9 Chest pain, unspecified (principal) | CPT/HCPCS: 93010 ==

== ENCOUNTER → 2025-11-05 20:05 | Outpatient (BNV) | payer MEDICAID, SELFPAY | PROVIDERS: Emergency Provider Emergency Medicine; Visit Provider Radiology Diagnostic Radiology | DX: R07.9 Chest pain, unspecified (principal) | CPT/HCPCS: 71045 ==

== ENCOUNTER 2025-11-12 12:10 | Emergency (ER) | payer SELFPAY ==
[2025-11-12 13:22] VITALS: BP 188/104; PULSE 103; RESP 16; TEMP 37; O2SAT 97; BMI 27.9
--- NOTE | 2025-11-12 13:27 | ECG_ITS ---
Test Reason : CHEST PAIN Blood Pressure : */* mmHG Vent. Rate : 102 BPM Atrial Rate : 102 BPM P-R Int : 142 ms QRS Dur : 88 ms QT Int : 368 ms P-R-T Axes : 35 1 3 degrees QTcB Int : 479 ms Poor data quality, interpretation may be adversely affected Sinus tachycardia Otherwise normal ECG When compared with ECG of 05-Nov-2025 18:46, No significant change was found Referred By: Generic ED Physician Electronically Signed By: AYESHA [place]
[2025-11-12 14:00] LABS: MANUAL DIFF FLAG NO
[2025-11-12 14:04] LABS: Hematocrit 43.3 % (42.0-52.0); Hemoglobin 14.7 g/dl (14.0-18.0); Imm Gran Abs Auto 0.05 X10*3/uL (0.00-0.03); Imm Gran Pct Auto 0.5 % (0.0-0.4); Lymphocytes Absolute Auto 2.3 X10*3/uL (1.2-4.9); Mean Corpuscular HGB Conc 33.9 g/dl (31.0-36.0); Mean Corpuscular Hemoglobin 29.9 pg (27.0-33.0); Mean Corpuscular Volume 88.2 fL (80.0-98.0); NRBC Abs Auto 0.000 X10*3/uL (0.0-0.012); NRBC Pct Auto 0.0 /100WBC (0.0-0.2); Platelet Count 433 X10*3/uL (160-400); Red Blood Count 4.91 X10*6/uL (4.60-5.80); White Blood Count 10.5 X10*3/uL (4.8-10.8)
[2025-11-12 14:18] LABS: Anion Gap 17 (12-20); Blood Urea Nitrogen 14 mg/dL (9-16); Calcium 9.5 mg/dL (8.4-10.2); Carbon Dioxide 23 mmol/L (22-29); Chloride 108 mmol/L (96-108); Creatinine Clr Calc Pharmacy 134.5; Estimated Glomerular Filt Rate > 60; Potassium 3.6 mmol/L (3.3-5.1); Sodium 144 mmol/L (135-145)
[2025-11-12 14:29] LABS: Troponin-I High Sensitivity < 2.7 ng/L (<3.5-35.0)
--- OUTSIDE RECORDS SUMMARY | 2025-11-12 17:47 | XMS_ITS | Encounter Summary ---
Author Organization [facility] Address [address] [place] [address] Phone Care Team Providers Care It Program Manager Name Role Phone Henrietta Scherer NP Primary Care Provider [phone] Encounter Details Date Type Department Care Team (Late st Contact Info) Description 06/30/2017 Conversion Encounter [place] [facility] - [address] [address] Social History Tobacco Use Types Packs/Day Years [...] on filedocumented in this encounter Care Teams It Program Manager Relationship Specialty Start Date End Date Henrietta Scherer NP PCP - General 06/24/17 documented as of this encounter
--- OUTSIDE RECORDS SUMMARY | 2025-11-12 17:47 | XMS_ITS | Clinical Summary ---
Author Organization [facility] Address [address] [place] [address] Phone Care Team Providers Care Senior Data Developer Name Role Phone Henrietta Scherer BACILIO Primary Care Provider [phone] Immunizations Immunization Administration Dates Next Due DTaP [...] age to complete this topic Care Teams Senior Data Developer Relationship Specialty Start Date End Date Henrietta Scherer NP PCP - General 06/24/17
--- OUTSIDE RECORDS SUMMARY | 2025-11-12 17:47 | XMS_ITS | Encounter Summary ---
Author Organization [facility] Address [address] [place] [address] Phone Care Team Providers Care Transport Technician Name Role Phone Pcp, Unknown Primary Care Provider Unavailabl e Encounter Details Date Type Department Care Team (Late st Contact Info) Description 06/11/2020 Transcribe Orders [facility] [address] [place] [address] Alex Dave MD [address] [place] [phone] [email or web address] Pre-employment examination (Primary Dx) Social History Tobacco [...] 1:33 PM EDT) Varicella Ab(s) Positive Positive [facility] Blood (Blood) 06/11/2020 1:3 3 PM EDT 06/12/2020 10:32 AM EDT us Alex Dave MD LAB BLOOD BKR ORDERABLES Fin al Result [facility] [address] [place] [address] * Rubella antibody, IgG (06/11/2020 1:33 PM EDT) Rubella Ab, IgG Positive Positive [facility] Blood (Blood) 06/11/2020 1:3 3 PM EDT 06/12/2020 10:32 AM EDT Alex Dave MD LAB BLOOD BKR ORDERABLES Fin al Result Performing Organization Address City/[facility]/ZIP Co de Phone Number [address] [address] * Measles antibody, IgG (06/11/2020 1:33 PM EDT) RUBEOLA IGG Positive Positive [facility] Blood (Blood) 06/11/2020 1:3 3 PM EDT 06/12/2020 10:32 AM EDT Alex Dave MD LAB BLOOD BKR ORDERABLES Fin al Result Performing Organization Address [facility] Co de Phone Number [address] [address] * Hepatitis B surface antibody (06/11/2020 1:33 PM EDT) HBV SURFACE ANTIBODY Negative [facility] Comment: Unvaccinated: Negative Vaccinated: Positive Blood 06/11/2020 1:33 PM EDT 06/11/2020 5:08 PM EDT us Alex Dave MD LAB BLOOD BKR ORDERABLES Fin al Result Performing Organization Address [facility] Co de Phone Number [address] [address] documented in this encounter Visit Diagnoses Diagnosis Pre-employment examination- Primary documented in this encounter Care Teams Transport Technician Relationship Specialty Start Date End Date Pcp, Unknown PCP - General 06/11/20 documented as of this encounter Additional Source Comments The information contained in this document represents components of the legal health record. It is not the complete legal health record.[facility]
--- OUTSIDE RECORDS SUMMARY | 2025-11-12 17:47 | XMS_ITS | Clinical Summary ---
Author Organization [facility] Address [address] [place] [address] Phone Care Team Providers Care District Manager Major Accounts Sales Name Role Phone Pcp, Unknown Primary Care [...] Medical Devices Not on file Care Teams District Manager Major Accounts Sales Relationship Specialty Start Date End Date Pcp, Unknown PCP - General 06/11/20 Additional Source Comments The information contained in this document represents components of the legal health record. It is not the complete legal health record.[facility]
== END 2025-11-12 21:04 | disposition left against medical advice (07) ==
PROVIDERS: Emergency Provider Emergency Medicine
DX: R07.9 Chest pain, unspecified (principal); R06.02 Shortness of breath; R00.0 Tachycardia, unspecified
CPT/HCPCS: 36415; 80048; 84484; 85025; 93005; 99283

== ENCOUNTER → 2025-11-12 13:27 | Outpatient (BNV) | payer SELFPAY | PROVIDERS: Emergency Provider Emergency Medicine; Visit Provider Internal Medicine | DX: R00.0 Tachycardia, unspecified (principal) | CPT/HCPCS: 93010 ==